=== PATIENT | female | born 1950 | race American Indian/Alaskan Native ===

== ENCOUNTER 2017-07-17 08:01 | Day surgery (SDC) | payer MEDICARE ==
[2017-07-01 11:10] VITALS: BMI 38.9
[2017-07-17] MEDS ORDERED: Propofol 10 mg/ml Inj (20 ML) ONE (09:01)
[2017-07-17] MEDS ORDERED: Sodium Chloride 0.9% 1,000 ML IV SCH (09:30)
[2017-07-17 10:48] VITALS: BP 116/57; PULSE 62; RESP 18; TEMP 97.9; O2SAT 100
== END 2017-07-17 11:42 | disposition home or self-care (01) ==
LOC: ENDO 08:01
PROVIDERS: ATTEND Specialist
DX: Z12.11 Encounter for screening for malignant neoplasm of colon (principal); K63.5 Polyp of colon; K57.30 Diverticulosis of large intestine without perforation or abscess without bleeding; K64.8 Other hemorrhoids
CPT/HCPCS: 45385; 88305; J2704; J7040 ×2